=== PATIENT | female | born 1995 | race Caucasian/White ===

== ENCOUNTER 2018-09-23 14:10 | Emergency (ER) | payer BC ==
[2018-09-23 16:23] VITALS: BP 125/70
--- NOTE | 2018-09-23 16:46 | UC ---
UC General HPI - HPI Summary HPI Summary: 23-year-old female who had the "stomach bug" over the past couple of days and is here for a return to work note. She states she has completely recovered from the illness. - History of Current Complaint Chief Complaint: UCGI Stated Complaint: NAUSEA,VOMITING/DIARRHEA/BHAGAT Time Seen by Provider: 09/23/18 16:19 Hx Obtained From: Patient Hx Last Menstrual Period: 08/28/18 Onset/Duration: Sudden Onset, Resolved Onset Severity: Moderate Current Severity: None Pain Intensity: 5 - Allergy/Home Medications Allergies/Adverse Reactions: Allergies Allergy/AdvReac Type Severity Reaction Status Date / Time seasonal Allergy Sneezing Uncoded 09/23/18 16:22 Home Medications: Home Medications Etonogest/Eth.estradiol (Nf) [Nuvaring Vaginal Ring] 1 each VAGINAL .SEE COMMENTS 09/23/18 [History Confirmed 09/23/18] buPROPion TAB* [Wellbutrin TAB*] 150 mg PO DAILY 09/23/18 [History Confirmed ] lamoTRIgine [Lamictal] 200 mg PO DAILY 09/23/18 [History Confirmed 09/23/18] traZODone TAB* [Desyrel TAB*] 100 mg PO BEDTIME PRN 09/23/18 [History Confirmed 09/23/18] PMH/Surg Hx/FS Hx/Imm Hx Previously Healthy: Yes - Surgical History Surgical History: Yes Surgery Procedure, Year, and Place: Head injury and katy placed 2009 - Social History Occupation: Employed Full-time Alcohol Use: Weekly Alcohol Amount: 2 Substance Use Type: None Smoking Status (MU): Former Smoker Review of Systems All Other Systems Reviewed And Are Negative: Yes Gastrointestinal: Positive: Vomiting - Vomiting has resolved. Is Patient Immunocompromised?: No Physical Exam Triage Information Reviewed: Yes Appearance: Well-Appearing, No Pain Distress, Well-Nourished Vital Signs: Initial Vital Signs Temp 98.5 F 09/23/18 16:11 Pulse 76 09/23/18 16:11 Resp 18 09/23/18 16:11 BP 125/70 09/23/18 16:11 Pulse Ox 98 09/23/18 16:11 Vital Signs Reviewed: Yes Eye Exam: Normal ENT Exam: Normal Neck exam: Normal Respiratory Exam: Normal Cardiovascular Exam: Normal Abdominal Exam: Normal Bowel Sounds: Positive: Present Musculoskeletal Exam: Normal Neurological Exam: Normal Psychological Exam: Normal Skin Exam: Normal Course/Dx - Course Course Of Treatment: Patient is here for a work note since the symptoms of illness have resolved. - Diagnoses Provider Diagnosis: Viral illness Discharge - Sign-Out/Discharge Documenting (check all that apply): Patient Departure All imaging exams completed and their final reports reviewed: No Studies - Discharge Plan Condition: Good Disposition: HOME Forms: *Work Release Referrals: [facility] [Outside] No Primary Care Phys,NOPCP [Primary Care Provider] - - Billing Disposition and Condition Condition: GOOD Disposition: Home - Attestation Statements Provider Attestation: Per institutional requirements, I have reviewed the chart, however, I was not consulted specifically or made aware of this patient by the midlevel provider. I did not personally evaluate, interact with , or disposition this patient.
== END 2018-09-23 16:55 | disposition home or self-care (01) ==
LOC: UCCORT 14:10
DX: B34.9 Viral infection, unspecified (principal); Z87.891 Personal history of nicotine dependence
CPT/HCPCS: 99201; G0463